=== PATIENT | female | born 1970 | race Caucasian/White ===

== ENCOUNTER 2023-11-03 08:27 | Day surgery (SDC) | payer OTHER ==
[~2023-11-03] VITALS: Ht 165.1 cm; Wt 68.0 kg
[2023-11-03] MEDS ORDERED: LIDOCAINE 2% 100 MG/5 ML UJET TP ONE ×2 (09:33→13:30)
[2023-11-03] MEDS ORDERED: fentaNYL citrate 0.05 MG/ML VIAL ONE (09:33)
[2023-11-03] MEDS ORDERED: KETOROLAC 30 MG/ML VIAL ONE (10:00)
[2023-11-03] MEDS ORDERED: KETOROLAC 30 MG/ML VIAL IM ONE (10:55)
== END 2023-11-03 11:27 | disposition home or self-care (01) ==
LOC: MDS 08:27 → MMU 08:29 → MDS 11:27
PROVIDERS: ATTEND Internal Medicine Gastroenterology
DX: R19.5 Other fecal abnormalities (principal); E78.00 Pure hypercholesterolemia, unspecified; Z80.0 Family history of malignant neoplasm of digestive organs; Z79.899 Other long term (current) drug therapy
CPT/HCPCS: 45378; J1885; J3010